=== PATIENT | male | born 1955 | race Hispanic/Latino ===

== ENCOUNTER 2018-06-13 15:40 | Emergency (ER) | payer SELFPAY ==
--- NOTE | 2018-06-13 17:07 | RAD REPORT ---
EXAM DESCRIPTION: RAD - Foot Left 3 View - 06/13/2018 4:45 pm CLINICAL HISTORY: Left Foot pain FINDINGS: No fracture or dislocation is seen. A radiopaque foreign body is not seen. No destructive bony lesion noted
[2018-06-13 17:15] LABS: Absolute Lymphocytes (CBC) 2.5 K/uL (0.7-4.9); Absolute Monocytes 0.8 K/uL (0.1-1.3); Absolute Neutrophil 6.3 K/uL (1.8-8.0); Basophils % 0.8 % (0-1.3); Eosinophils % 5.5 % (0-4.4); Hematocrit 42.3 % (39.6-49.0); Lymphocytes % 24.4 % (15.3-44.8); MPV 9.7 fL (7.6-11.3); Monocytes % 7.6 % (3.3-12.3); RBC Red Blood Cell Count 4.66 M/uL (4.33-5.43)
[2018-06-13 17:19] LABS: Protime INR 1.04
[2018-06-13 17:32] LABS: ALT/SGPT 28 U/L (12-78); AST/SGOT 16 U/L (15-37); Albumin 3.9 g/dL (3.4-5.0); Alkaline Phosphatase 87 U/L (45-117); BUN Blood Urea Nitrogen 13 mg/dL (7-18); Bicarbonate 26 mmol/L (21-32); Bilirubin Direct 0.1 mg/dL (0-0.2); Bilirubin Total 0.5 mg/dL (0.2-1.0); Glucose Level 90 mg/dL (74-106); Protein, Total 7.5 g/dL (6.4-8.2); Sodium Level 142 mmol/L (136-145)
[2018-06-13 17:39] LABS: Urine Blood NEGATIVE (NEG); Urine Glucose TRACE (NEG); Urine Protein TRACE (NEG); Urine Specific Gravity >1.030 (1.005-1.030); Urine pH 5.5 (5.0-7.0)
[2018-06-13] MEDS ORDERED: SMZ./TMP. 800/160 MG TABLET ONE (18:07)
[2018-06-13] MEDS ORDERED: levoFLOXacin 750 MG TAB ONE (18:07)
--- NOTE | 2018-06-13 18:07 | EDPHYS ---
Physician Documentation [facility] Name: Oliver Rock Age: 63 yrs Sex: Male : 1955 Arrival Date: 06/13/2018 Time: 15:43 Bed 18 Private MD: None, None ED Physician Niya Randolph HPI: 06/13 16:10 This 63 yrs old Male presents to ER via Wheelchair with complaints of Wound cp Infection. 16:10 The patient presents with a puncture wound, from a nail. cp 16:10 The complaints affect the plantar surface of left foot. Context: the patient can fully cp bear weight, stepped on nail while wearing shoes. Onset: The symptoms/episode began/occurred 2 day(s) ago. Associated signs and symptoms: Pertinent positives: swelling, warmth, erythema, Pertinent negatives: calf tenderness, fever. The patient has been recently seen by a physician: in [facility], yesterday, with similar presenting complaints, X-rays were performed, was given tetanus vaccination, IV antibiotics and prescribed antibiotics. reports there was misunderstanding so patient did not start taking prescribed antibiotics. Was seen again at [facility] today and sent to ED. Historical: - Allergies: 15:52 No Known Allergies; sv - PMHx: 15:52 None; sv - PSHx: 15:52 Appendectomy; sv - Immunization history:: Adult Immunizations up to date. - Social history:: Smoking status: unknown. - Ebola Screening: : No symptoms or risks identified at this time. ROS: 16:15 Constitutional: Negative for body aches, chills, fever, poor PO intake. cp 16:15 Eyes: Negative for injury, pain, redness, and discharge. cp 16:15 Cardiovascular: Negative for chest pain, palpitations. 16:15 Respiratory: Negative for cough, shortness of breath, wheezing. 16:15 Abdomen/GI: Negative for abdominal pain, nausea, vomiting, and diarrhea. 16:15 Skin: Positive for puncture, of the plantar surface of left foot. 16:15 All other systems are negative. Exam: 16:22 Constitutional: The patient appears in no acute distress, alert, awake, cp non-diaphoretic, non-toxic, well developed, well nourished. 16:22 Head/Face: Normocephalic, atraumatic. cp 16:22 Eyes: Periorbital structures: appear normal, Conjunctiva: normal, no exudate, no injection, Sclera: no appreciated abnormality, Lids and lashes: appear normal, bilaterally. 16:22 ENT: External ear(s): are unremarkable, Nose: is normal, Mouth: Lips: moist, Oral mucosa: moist, Posterior pharynx: Airway: no evidence of obstruction, patent. 16:22 Chest/axilla: Inspection: normal. 16:22 Cardiovascular: Rate: normal, Rhythm: regular, Pulses: Pulses are 2+ in right dorsalis pedis artery and left dorsalis pedis artery. Edema: is not appreciated. 16:22 Respiratory: the patient does not display signs of respiratory distress, Respirations: normal, no use of accessory muscles, no retractions, no splinting, no tachypnea, Breath sounds: are clear throughout, no decreased breath sounds, no stridor, no wheezing. 16:22 Abdomen/GI: Inspection: abdomen appears normal, Palpation: abdomen is soft and non-tender, in all quadrants. 16:22 Skin: cellulitis, that is moderate, well demarcated, on the left foot, injury, that can be described as without bleeding, puncture(s), that are deep, of the plantar surface of left foot. Vital Signs: 15:52 BP 140 / 84; Pulse 66; Resp 18; Temp 98.2; Pulse Ox 100% ; Weight 82.55 kg; Height 5 sv ft. 7 in. (170.18 cm); 17:28 BP 139 / 85; Pulse 64; Resp 18; Temp 98.0(O); Pulse Ox 100% ; mh5 19:00 BP 136 / 84; Pulse 65; Resp 16; Pulse Ox 100% ; jl7 15:52 Body Mass Index 28.50 (82.55 kg, 170.18 cm) sv MDM: 15:55 Patient medically screened. 18:05 Data reviewed: vital signs, nurses notes, lab test result(s), radiologic studies, plain cp films, I have discussed the patient's presentation/case with the attending Emergency Department Physician; and as a result, I will discharge patient. 06/13 16:05 Order name: Blood Culture Adult (2) cp 06/13 16:05 Order name: CBC with Diff; Complete Time: 17:30 cp 06/13 17:32 Interpretation: Normal except: EOSINOPHIL % 5.5; EOSA 0.6. cp 06/13 16:05 Order name: BMP; Complete Time: 17:45 cp 06/13 17:45 Interpretation: Normal except: CL 111. cp 06/13 16:05 Order name: LFT's; Complete Time: 17:45 cp 06/13 16:05 Order name: Procalcitonin; Complete Time: 17:45 cp 06/13 16:05 Order name: Lactate; Complete Time: 17:32 cp 06/13 17:32 Interpretation: LAC 1.5; Reviewed. cp 06/13 16:05 Order name: XRAY Foot LEFT 3 View; Complete Time: 17:30 cp 06/13 16:05 Order name: IV; Complete Time: 16:32 cp 06/13 16:06 Order name: PT-INR; Complete Time: 17:30 cp 06/13 16:06 Order name: Ptt, Activated; Complete Time: 17:30 cp 06/13 16:48 Order name: Labs - recollect needed; Complete Time: 17:14 bd 06/13 16:50 Order name: Urine Dipstick--Ancillary (enter results); Complete Time: 17:45 bd Administered Medications: 18:00 Drug: LevaQUIN 750 mg Route: PO; jl7 18:00 Drug: Bactrim (160 mg-800 mg (DS) 1 tablet Route: PO; jl7 Disposition: 20:41 Co-signature as Attending Physician, Niya Randolph MD. ma2 Disposition: 06/13/18 18:07 Discharged to Home. Impression: Puncture wound without foreign body of foot - Left, Cellulitis of left lower limb. - Condition is Stable. - Discharge Instructions: Cellulitis, Adult, Puncture Wound. - Prescriptions for Cipro 500 mg Oral Tablet - take 1 tablet by ORAL route every 12 hours for 8-10 days start morning of 06-14-2018; 18 tablet. Bactrim DS 800- 160 mg Oral Tablet - take 1 tablet by ORAL route every 12 hours for 10 days start morning of 06-14-2018; 20 tablet. Ibuprofen 800 mg Oral Tablet - take 1 tablet by ORAL route every 8 hours As needed take with food; 30 tablet. - Medication Reconciliation Form, Thank You Letter, Antibiotic Education, Prescription Opioid Use form. - Follow up: Private Physician; When: 48 Hours; Reason: Wound Recheck. - Problem is new. - Symptoms have improved. - Notes: elevate and rest for left foot Signatures: Dispatcher [employer] EDJaci Pagan Stephanie, RN RN Landry Daniel PA PA cp Leal, Jahala, RN RN jl7 Niya Randolph MD MD ma2 Corrections: (The following items were deleted from the chart) 17:32 17:32 Normal except: EOSINOPHIL % 5.5. cp cp 19:25 18:07 06/13/2018 18:07 Discharged to Home. Impression: Puncture wound without foreign jl7 body of foot - Left; Cellulitis of left lower limb. Condition is Stable. Forms are Medication Reconciliation Form, Thank You Letter, Antibiotic Education, Prescription Opioid Use. Follow up: Private Physician; When: 48 Hours; Reason: Wound Recheck. Problem is new. Symptoms have improved. cp
--- NOTE | 2018-06-13 18:07 | ER ---
Nurse's Notes [facility] Name: Oliver Rock Age: 63 yrs Sex: Male : 1955 Arrival Date: 06/13/2018 Time: 15:43 Bed 18 Private MD: None, None Diagnosis: Puncture wound without foreign body of foot-Left;Cellulitis of left lower limb Presentation: 06/13 15:50 Presenting complaint: states: sent by [facility] for IV antibiotics. Spouse sv reports that he stepped on a nail on Tuesday. Was seen at the clinic yesterday, given IM abx, tetanus IM but they did not get the abx prescription because they were confused about the instruction. Seen at clinic today and told him to come here because it looks worse. Transition of care: patient was not received from another setting of care. Onset of symptoms was June 10, 2018. Care prior to arrival: None. 15:50 Method Of Arrival: Wheelchair sv 15:50 Acuity: ANEL 3 sv 17:00 Risk Assessment: Do you want to hurt yourself or someone else? Patient reports no jl7 desire to harm self or others. Initial Sepsis Screen: Does the patient meet any 2 criteria? No. Patient's initial sepsis screen is negative. Does the patient have a suspected source of infection? Yes: Skin breakdown/wound. Historical: - Allergies: 15:52 No Known Allergies; sv - PMHx: 15:52 None; sv - PSHx: 15:52 Appendectomy; sv - Immunization history:: Adult Immunizations up to date. - Social history:: Smoking status: unknown. - Ebola Screening: : No symptoms or risks identified at this time. Screenin:00 Abuse screen: Denies threats or abuse. Denies injuries from another. Nutritional jl7 screening: No deficits noted. Tuberculosis screening: No symptoms or risk factors identified. Fall Risk IV access (20 points). Total Romero Fall Scale indicates No Risk (0-24 pts). Assessment: 17:00 General: Appears in no apparent distress. uncomfortable, Behavior is calm, cooperative, jl7 appropriate for age. Pain: Complains of pain in ball of left foot and dorsum of left foot Pain currently is 6 out of 10 on a pain scale. Neuro: Level of Consciousness is awake, alert, obeys commands, Oriented to person, place, time, situation. Cardiovascular: Patient's skin is warm and dry. Respiratory: Airway is patent Respiratory effort is even, unlabored, Respiratory pattern is regular, symmetrical. GI: No signs and/or symptoms were reported involving the gastrointestinal system. : No signs and/or symptoms were reported regarding the genitourinary system. EENT: No signs and/or symptoms were reported regarding the EENT system. Derm: Skin is pink, warm \T\ dry. Musculoskeletal: No signs and/or symptoms reported regarding the musculoskeletal system. Injury Description: Puncture sustained to ball of left foot is superficial, was sustained 1 day ago. Redness and swelling noted to left foot. Vital Signs: 15:52 BP 140 / 84; Pulse 66; Resp 18; Temp 98.2; Pulse Ox 100% ; Weight 82.55 kg; Height 5 sv ft. 7 in. (170.18 cm); 17:28 BP 139 / 85; Pulse 64; Resp 18; Temp 98.0(O); Pulse Ox 100% ; mh5 19:00 BP 136 / 84; Pulse 65; Resp 16; Pulse Ox 100% ; jl7 15:52 Body Mass Index 28.50 (82.55 kg, 170.18 cm) sv ED Course: 15:43 Patient arrived in ED. mr 15:43 None, None is Private Physician. mr 15:52 Triage completed. sv 15:52 Arm band placed on. sv 15:54 Landry Roberts PA is PHCP. cp 15:55 Niya Randolph MD is Attending Physician. cp 16:04 Staci Summers, GEM is Primary Nurse. jl7 16:30 Initial lab(s) drawn, by me, sent to lab. Inserted saline lock: 22 gauge in right 5 antecubital area, using aseptic technique. Blood collected. 16:30 First set of blood cultures drawn Second set of blood cultures drawn by me. 5 16:31 Blood Culture Adult (2) Sent. 5 16:31 CBC with Diff Sent. 5 16:32 BMP Sent. 5 16:32 LFT's Sent. 5 16:32 Procalcitonin Sent. 5 16:32 Lactate Sent. 5 16:32 PT-INR Sent. 5 16:32 Ptt, Activated Sent. 5 16:44 X-ray completed. Portable x-ray completed in exam room. Patient tolerated procedure ml well. 16:46 XRAY Foot LEFT 3 View In Process Unspecified. EDMS 17:30 Patient has correct armband on for positive identification. Bed in low position. Call 5 light in reach. Side rails up X 1. Adult w/ patient. Warm blanket given. Pulse ox on. NIBP on. 19:10 No provider procedures requiring assistance completed. IV discontinued, intact, jl7 bleeding controlled, No redness/swelling at site. Pressure dressing applied. Administered Medications: 18:00 Drug: LevaQUIN 750 mg Route: PO; jl7 18:00 Drug: Bactrim (160 mg-800 mg (DS) 1 tablet Route: PO; jl7 Outcome: 18:07 Discharge ordered by . suzie 19:10 Discharged to home ambulatory, with family. jl7 19:10 Condition: stable 19:10 Discharge instructions given to patient, family, Instructed on discharge instructions, follow up and referral plans. medication usage, Demonstrated understanding of instructions, follow-up care, medications, Prescriptions given X 3. 19:25 Patient left the ED. jl7 Signatures: Dispatcher [employer] EDMS Lianne Silva, RN RN estevan Huerta, [place] mr Shmuel, Landry Pittman, Shelby Christianson cp [facility] Staci Summers RN RN jl7
== END 2018-06-13 19:25 | disposition home or self-care (01) ==
LOC: ER 15:40
DX: S91.332A Puncture wound without foreign body, left foot, initial encounter (principal); L03.116 Cellulitis of left lower limb
CPT/HCPCS: 36415; 80048; 80076; 81003; 83605; 84145; 85025; 85610; 85730; 87040; 99284